=== PATIENT | male | born 1975 | race Two or more races ===

== ENCOUNTER 2018-05-29 22:58 | Inpatient (IN) | payer OTHER ==
[~2018-05-29] VITALS: Ht 182.9 cm; Wt 85.1 kg
[2018-05-29 22:34] VITALS: BP 116/78
[2018-05-29] MEDS ORDERED: MORPHINE SULF INJ 2 MG/ML SYRINGE 1ML IV PRN (23:15)
[2018-05-29] MEDS ORDERED: NITROGLYCERIN 0.4 MG SL TAB SL PRN (23:15)
[2018-05-30] MEDS ORDERED: HYDROcodone-ACET 5/325MG TAB PO PRN (01:00)
[2018-05-30] MEDS ORDERED: ONDANSETRON HCL 4 MG/2 ML VIAL IV PRN (01:00)
[2018-05-30] MEDS ORDERED: ATOR20TA PO (01:44)
[2018-05-30 02:08] LABS: Urine Amorphous Crystal MOD /hpf (None Seen); Urine Bacteria NONE SEEN /hpf (None Seen); Urine Blood TRACE /uL (Negative); Urine Mucus FEW (None Seen); Urine Specific Gravity 1.025 (1.001-1.035); Urine WBC 1 /hpf (0 - 3)
[2018-05-30 04:43] VITALS: BP 95/58
[2018-05-30 05:43] LABS: Basophils # (auto) 0 uL; Basophils % (auto) 0.1 % (0.0-2.0); Eosinophils # (auto) 0 uL; Eosinophils % (auto) 0.1 % (0.0-7.0); Hematocrit 40.5 % (41.0-53.0); Hemoglobin 14.1 g/dL (13.5-17.5); Lymphocytes # (auto) 1.5 uL; Mean Corpuscular Hemoglobin 30.2 pg (28.0-32.0); Mean Corpuscular Hgb Conc. 34.9 g/dL (32.0-36.0); Mean Corpuscular Volume 86.5 fL (80.0-100.0); Monocytes # (auto) 0.7 uL; Monocytes % (auto) 7.6 % (0.0-12.0); Neutrophils # (auto) 6.8 uL; Neutrophils % (auto) 75.2 % (37.0-80.0); Platelet Count (auto) 214 10^3/uL (140-450); Red Blood Cells 4.69 10^6/uL (4.5-5.90); Red Cell Distribution Width 13.8 % (11.8-14.3); White Blood Cell 9.1 10^3/uL (4.4-10.8)
[2018-05-30 05:45] LABS: BUN/Creatinine Ratio 17.9; Calcium 8.5 mg/dL (8.5-10.1); Potassium 3.5 mmol/L (3.5-5.1)
[2018-05-30 05:48] LABS: Bilirubin, Total 1.2 mg/dL (0.2-1.0); Total Protein 6.4 g/dL (6.4-8.2)
[2018-05-30 05:51] LABS: INR 1.13 (0.9-1.15); Partial Thromboplastin Time 34.1 sec (23.78-33.04)
[2018-05-30] MEDS: APIXABAN 5 MG TAB PO SCH ×3 (06:00→19:36)
[2018-05-30] MEDS: METOPROLOL TARTRATE 25 MG TAB PO SCH ×3 (06:01→21:24)
[2018-05-30 08:00] VITALS: BP 135/55
[2018-05-30 09:00] VITALS: BP 135/55
[2018-05-30] MEDS ORDERED: DIGOXIN (250MCG/ML) 2 ML AMPULE IV ONE (09:45)
[2018-05-30] MEDS ORDERED: PATIENTS OWN MEDICATION (Eliquis 5 MG) PO SCH (10:00)
[2018-05-30] MEDS: AMIODARONE HCL 200 MG TAB PO SCH ×2 (10:00→21:24)
[2018-05-30] MEDS: SODIUM CHLORIDE 0.9% 1,000 ML IV SCH ×2 (10:30→23:58)
[2018-05-30] MEDS: POTASSIUM CHL 20MEQ/100ML 100 ML IV SCH ×2 (10:51→17:17)
[2018-05-30] MEDS ORDERED: LIDOCAINE 2%HCL (LOCAL ANESTH.) INJ 10ml MDV ONE (12:33)
[2018-05-30] MEDS ORDERED: MIDAZOLAM HCL 1MG/1ML-2 ML VIAL ONE (12:33)
[2018-05-30] MEDS ORDERED: fentaNYL CITRATE 100 MCG/2 ML VL ONE (12:33)
[2018-05-30] MEDS ORDERED: LIDOCAINE 2% (LOCAL ANESTH.) PF 5ml SDV ONE (12:47)
[2018-05-30 12:59] VITALS: BP 135/53
[2018-05-30] MEDS ORDERED: DIGOXIN 0.25 MG TAB PO SCH (13:00)
[2018-05-30] MEDS ORDERED: AMIODARONE HCL (50 MG/ ML) 3 ML VIAL IV ONE (13:56)
[2018-05-30] MEDS ORDERED: diphenhdrAMINE HCL 50 MG/1 ML VL ONE (14:19)
[2018-05-30] MEDS ORDERED: DILTIAZEM HCL 25 MG/5 ML VIAL IV ONE (14:30)
[2018-05-30] MEDS ORDERED: DILTIAZEM HCL 120MG ER CAP PO ONE (14:30)
[2018-05-30] MEDS ORDERED: DILTIAZEM HCL 50 MG/10 ML VIAL IV ONE (14:45)
[2018-05-30] MEDS ORDERED: APIXABAN 5 MG TAB PO ONE (15:45)
[2018-05-30 17:00] VITALS: BP 94/56
[2018-05-30] MEDS ORDERED: POTASSIUM CHL 20MEQ/100ML 100 ML IV ONE (17:16)
[2018-05-30] MEDS ORDERED: DIGOXIN 0.25 MG TAB PO ONE (19:00)
[2018-05-30] MEDS: ATORVASTATIN 20 MG TAB PO SCH (21:24)
[2018-05-30 22:45] VITALS: BP 121/69
[2018-05-31 05:19] VITALS: BP 117/86
[2018-05-31] MEDS: METOPROLOL TARTRATE 25 MG TAB PO SCH ×3 (06:29→22:00)
[2018-05-31 07:40] VITALS: BP 114/74
[2018-05-31 09:00] VITALS: BP_SYST 114; BP_SYST 118; BP_DIAS 71; BP_DIAS 74
[2018-05-31] MEDS ORDERED: DIGOXIN 0.25 MG TAB PO SCH (10:00)
[2018-05-31] MEDS ORDERED: DILTIAZEM HCL 120MG ER CAP PO SCH (10:00)
[2018-05-31] MEDS ORDERED: AMI200T PO (10:18)
[2018-05-31] MEDS ORDERED: DIL120C PO (10:18)
[2018-05-31] MEDS ORDERED: DIGO0.2527 PO (10:18)
[2018-05-31] MEDS ORDERED: MET25T PO (10:18)
[2018-05-31] MEDS ORDERED: APIX5TAB PO (10:18)
[2018-05-31] MEDS: APIXABAN 5 MG TAB PO SCH ×2 (10:59→21:58)
[2018-05-31] MEDS: AMIODARONE HCL 200 MG TAB PO SCH ×2 (11:00→21:58)
[2018-05-31 17:20] VITALS: BP 113/71
[2018-05-31] MEDS: SODIUM CHLORIDE 0.9% 1,000 ML IV SCH (18:32)
[2018-05-31] MEDS: ATORVASTATIN 20 MG TAB PO SCH (21:58)
== END 2018-05-31 22:10 | disposition home or self-care (01) | DRG 273 ==
LOC: TELE-WESTW 22:58
PROVIDERS: ADMIT Hospitalist; ATTEND Hospitalist
PROC: 02583ZZ Destruction of Conduction Mechanism, Percutaneous Approach (ICD-10-PCS; principal; 2018-05-31)
PROC: 02K83ZZ Map Conduction Mechanism, Percutaneous Approach (ICD-10-PCS; 2018-05-31)
PROC: 4A023FZ Measurement of Cardiac Rhythm, Percutaneous Approach (ICD-10-PCS; 2018-05-31)
PROC: 4A0234Z Measurement of Cardiac Electrical Activity, Percutaneous Approach (ICD-10-PCS; 2018-05-31)
DX: I48.92 Unspecified atrial flutter (principal); I50.43 Acute on chronic combined systolic (congestive) and diastolic (congestive) heart failure; E78.5 Hyperlipidemia, unspecified; F17.200 Nicotine dependence, unspecified, uncomplicated; I42.9 Cardiomyopathy, unspecified; I48.0 Paroxysmal atrial fibrillation; Z80.42 Family history of malignant neoplasm of prostate; Z90.89 Acquired absence of other organs
CPT/HCPCS: 36415; 71045; 80053; 80162; 81001; 83735; 85025; 85610; 85730; 86850; 86900; 86901; 87081; 93005; 93613; 93622; 93656; 93662; 99152; A6257; J2001; J2250; J3480